=== PATIENT | male | born 1975 | race Caucasian/White ===

== ENCOUNTER 2017-02-08 07:14 | Emergency (ER) | payer BC ==
[2017-02-08 07:44] VITALS: BP 145/81
[2017-02-08] MEDS ORDERED: Penicillin VK LIQ* 250 MG/5 ML BTL PO ONE (07:56)
[2017-02-08] MEDS ORDERED: Penicillin VK TAB* 250 MG PO ONE (07:57)
[2017-02-08] MEDS ORDERED: Ibuprofen TAB* 600 MG PO ONE (07:58)
--- NOTE | 2017-02-08 08:00 | UC ---
UC Dental HPI - HPI Summary HPI Summary: 41 yo male with dental pain x 3 days progressively worsening no relief with NSAIDs woke at 4am with right cheek swollen no fever - History of Current Complaint Chief Complaint: UCDentalProblem Stated Complaint: ORAL COMPLAINT/FACIAL SWELLING Time Seen by Provider: 02/08/17 07:49 Hx Obtained From: Patient Onset/Duration: Gradual Onset, Lasting Days Severity: Severe Pain Intensity: 9 Pain Scale Used: 0-10 Numeric Aggravating: Heat, Cold, Chewing Alleviating: Nothing Related History: Previous Dental Care on Same Tooth, Swelling - Allergies/Home Medications Allergies/Adverse Reactions: Allergies Allergy/AdvReac Type Severity Reaction Status Date / Time No Known Allergies Allergy Verified 02/08/17 07:23 PMH/Surg Hx/FS Hx/Imm Hx Previously Healthy: Yes - Surgical History Surgical History: Yes Surgery Procedure, Year, and Place: Left Inguinal Herniorrhaphy, 2011, [place] ; Left Knee Arthroscopy, ~2004, [facility] - Family History Known Family History: Positive: Cardiac Disease, Hypertension - Social History Alcohol Use: Occasionally Alcohol Amount: weekends Substance Use Type: None Smoking Status (MU): Light Every Day Tobacco Smoker Type: Cigars Amount Used/How Often: 3 daily Length of Time of Smoking/Using Tobacco: On and Off Since Age 14 Have You Smoked in the Last Year: Yes Household Exposure Type: Cigarettes Review of Systems Constitutional: Negative Skin: Negative Eyes: Negative ENT: Dental Pain Respiratory: Negative Cardiovascular: Negative Gastrointestinal: Negative Genitourinary: Negative Motor: Negative Neurovascular: Negative Musculoskeletal: Negative Neurological: Negative Psychological: Negative All Other Systems Reviewed And Are Negative: Yes Physical Exam Triage Information Reviewed: Yes Appearance: Well-Appearing, No Pain Distress, Well-Nourished Vital Signs: Initial Vital Signs Temp 98.5 F 02/08/17 07:22 Pulse 58 02/08/17 07:22 Resp 16 02/08/17 07:22 BP 145/81 02/08/17 07:22 Pulse Ox 98 02/08/17 07:22 Vital Signs Reviewed: Yes Eyes: Positive: Conjunctiva Clear ENT: Positive: Hearing grossly normal. Negative: Nasal congestion, Nasal drainage, TMs normal - unable to vis due to cerumen, Trismus, Muffled/hoarse voice Dental: Positive: Gross Decay/Caries @ Neck: Positive: Nontender, No Lymphadenopathy Respiratory: Positive: Lungs clear, Normal breath sounds, No respiratory distress Cardiovascular: Positive: RRR, No Murmur Musculoskeletal: Positive: Strength Intact, ROM Intact, No Edema Neurological: Positive: Alert Psychological Exam: Normal Skin Exam: Normal Dental Complaint Course/Dx - Differential Dx/Diagnosis Provider Diagnoses: Dental abscess Discharge - Discharge Plan Condition: Stable Disposition: HOME Prescriptions: HYDROcodone/ACETAMIN 5-325 MG* [[place] 5-325 TAB*] 1 tab PO Q4H PRN #15 tab MDD 6 PRN Reason: Pain - Severe Ibuprofen TAB* [Motrin TAB*] 600 mg PO Q6H PRN #40 tab PRN Reason: Pain Penicillin VK TAB 500 MG(NF) [Penicillin VK 500 mg Tab(NF)] 500 mg PO QID #28 tab Patient Education Materials: Dental Abscess (ED) Forms: *Gen. Provider Communication Referrals: No Primary Care Phys,NOPCP [Primary Care Provider] - Images Head: 1 - swollen/tender Dental: 1 - gum swollen 2 - teeth rotted to gum line 3 - teeth rotted to gum line
== END 2017-02-08 08:13 | disposition home or self-care (01) ==
LOC: UCCORT 07:14
DX: K04.7 Periapical abscess without sinus (principal); F17.210 Nicotine dependence, cigarettes, uncomplicated
CPT/HCPCS: 99212; A9270-GY; G0463

== ENCOUNTER 2017-04-29 08:46 | Emergency (ER) | payer BC ==
[2017-04-29] MEDS ORDERED: Ibuprofen TAB* 400 MG PO ONE (09:09)
--- NOTE | 2017-04-29 09:09 | UC ---
Upper Extremity HPI - HPI Summary HPI Summary: Injury to right wrist yesterday when he fell on outstretched hand. Has pain and swelling of the right wrist. - History of Current Complaint Chief Complaint: UCUpperExtremity Stated Complaint: RIGHT WRIST INJURY Time Seen by Provider: 04/29/17 08:57 Hx Obtained From: Patient Onset/Duration: Sudden Onset, Lasting Hours - about 18 hours ago. Severity Initially: Moderate Severity Currently: Moderate Pain Intensity: 8 Pain Scale Used: 0-10 Numeric Location Of Pain: Is Discrete @ - right distal radius. Character: Aching, Throbbing Aggravating Factor(s): Movement, Extension Alleviating Factor(s): OTC Meds - not much relief with naproxen 440mg Related History: Dominant Hand Right - Risk Factors DVT Risk Factors: Negative Septic Arthritis Risk Factor: Negative - Allergies/Home Medications Allergies/Adverse Reactions: Allergies Allergy/AdvReac Type Severity Reaction Status Date / Time Hydrocodone AdvReac Nausea Verified 04/29/17 08:56 Home Medications: Home Medications Naproxen Sodium [Naproxen Sodium 220 mg] 440 mg PO ONCE 04/29/17 [History Confirmed 04/29/17] PMH/Surg Hx/FS Hx/Imm Hx Previously Healthy: Yes - Surgical History Surgical History: Yes Surgery Procedure, Year, and Place: Left Inguinal Herniorrhaphy, ~2011, [place] ; Right Arthroscopy, ~2007, [place] - Family History Known Family History: Positive: Cardiac Disease, Hypertension, Diabetes - grandmother, Other - grandmother with diabetes of stroke, age 93 - Social History Occupation: Employed Full-time Lives: With Family Alcohol Use: Weekly Alcohol Amount: weekends Substance Use Type: None Smoking Status (MU): Heavy Every Day Tobacco Smoker Type: Cigars Amount Used/How Often: 5 cigars daily Length of Time of Smoking/Using Tobacco: On and Off Since Age 15 Have You Smoked in the Last Year: Yes Household Exposure Type: Cigarettes Review of Systems Constitutional: Negative Skin: Negative Eyes: Negative ENT: Negative Respiratory: Negative Cardiovascular: Negative Gastrointestinal: Negative Genitourinary: Negative Motor: Negative Neurovascular: Negative Musculoskeletal: Arthralgia, Decreased ROM Neurological: Negative Psychological: Negative All Other Systems Reviewed And Are Negative: Yes Physical Exam Triage Information Reviewed: Yes Appearance: Well-Appearing, Pain Distress - moderate with palpation Vital Signs: Initial Vital Signs Temp 98.6 F 04/29/17 08:53 Pulse 62 04/29/17 08:53 Resp 16 04/29/17 08:53 BP 141/84 04/29/17 08:53 Pulse Ox 100 04/29/17 08:53 Vital Signs Reviewed: Yes ENT: Positive: Normal ENT inspection Neck: Positive: Nontender, No Lymphadenopathy Respiratory: Positive: Lungs clear, Normal breath sounds Cardiovascular: Positive: RRR, No Murmur Musculoskeletal: Positive: ROM Intact - right ankle., ROM Limited @ - right wrist, cannot extend wrist beyond a few degrees, Other: - diffuse wrist swelling with mild swelling of the hand and digits. Tender to palpation distal radius and ulna. Distal ulna with laxity. Neurological: Positive: Alert, Muscle Tone Normal Skin Exam: Other - superficial abrasion right lateral malleolus, about 2 cm. Diagnostics - Laboratory Diagnostic Studies Completed/Ordered: xray right wrist with soft tissue swelling , no fracture. Upper Extremity Course/Dx - Course Course Of Treatment: right wrist splint. ibuprofen 800mg three times daily as needed for pain. reassess 7 to 10 days if pain continues. - Differential Dx/Diagnosis Differential Diagnosis/HQI/PQRI: Contusion, Strain, Sprain Provider Diagnoses: right wrist sprain, possible ligament tear CC Discharge - Discharge Plan Condition: Stable Disposition: HOME Patient Education Materials: Wrist Sprain (ED) Forms: *Work Release Referrals: No Primary Care Phys,NOPCP [Primary Care Provider] - Jack Alcala MD [Medical Doctor] - Additional Instructions: Esnure that you ice your wrist regularly today, applying ice for 15 mintues every few hours. Use the splint regularly Follow up with orthpedics to assess possible ligament tear.
[2017-04-29 09:13] VITALS: BP 141/84
--- NOTE | 2017-04-29 09:45 | RAD ---
INDICATION: LEFT wrist pain and swelling. Decreased range of motion. Preceding fall. COMPARISON: No relevant prior exams available on the [facility] PACS for comparison. TECHNIQUE: AP, lateral, and oblique views LEFT wrist. REPORT: No cortical disruption or suspicious trabecular irregularity to suggest fracture. Normal articular alignment. No significant arthropathic change evident. Soft tissue swelling about the wrist without significant focality. IMPRESSION: Soft tissue swelling without additional radiographic finding. If there is high index of suspicion for an occult scaphoid fracture repeat exam in 7 - 10 days would be suggested.
== END 2017-04-29 09:59 | disposition home or self-care (01) ==
LOC: UCCORT 08:46
DX: S63.501A Unspecified sprain of right wrist, initial encounter (principal); W19.XXXA Unspecified fall, initial encounter; F17.210 Nicotine dependence, cigarettes, uncomplicated; Z88.5 Allergy status to narcotic agent
CPT/HCPCS: 99213; A9270-GY; G0463